=== PATIENT | female | born 1985 ===

== ENCOUNTER 2021-04-26 14:19 | Emergency (ER) | payer MEDICAID, OTHER ==
[~2021-04-26] VITALS: Ht 154.9 cm; Wt 81.6 kg
[2021-04-26] MEDS ORDERED: ACETAMINOPHEN 500 MG TAB PO ONE (16:00)
[2021-04-26] MEDS ORDERED: IOHEXOL 300 MG/ML 100ML BOTTLE IJ ONE (16:45)
[2021-04-26 19:39] VITALS: BP 118/62
== END 2021-04-26 20:04 | disposition home or self-care (01) ==
LOC: EDBD 14:19 → ER 14:19
DX: S60.222A Contusion of left hand, initial encounter (principal); S40.012A Contusion of left shoulder, initial encounter; S80.12XA Contusion of left lower leg, initial encounter; Z98.51 Tubal ligation status; Z98.890 Other specified postprocedural states; V43.52XA Car driver injured in collision with other type car in traffic accident, initial encounter; Y93.89 Activity, other specified; Y92.410 Unspecified street and highway as the place of occurrence of the external cause; Y99.8 Other external cause status
CPT/HCPCS: 73030; 73120; 73590; 74177; 99285; Q9967